=== PATIENT | male | born 2000 ===

== ENCOUNTER 2021-08-01 13:47 | Inpatient (IN) | payer MEDICAID, OTHER ==
[2021-08-01 13:58] VITALS: RESP 18
--- NOTE | 2021-08-01 15:53 | ED ---
General Adult HPI - General Chief complaint: Psychiatric Symptoms Stated complaint: Mental Health Time Seen by Provider: 08/01/21 14:59 Source: patient Mode of arrival: ambulatory Limitations: no limitations - History of Present Illness Initial comments: Dictation was produced using [employer] dictation software. please excuse any grammatical, word or spelling errors. Chief Complaint: Patient is a 21-year-old male presents emergency department for suicidal intent History of Present Illness: Is a 21-year-old male he lives with his gra ndparents. He states he feels depressed and wants to harm himself. He states he has a plan of cutting himself or crashing her car intentionally. Patient denies any such attempt recently. Patient has any psychiatric history. States that he feels this way because he feels pressure to grow up. Hasn't homicidal ideation. No visual auditory hallucinations. The ROS documented in this emergency department record has been reviewed and confirmed by me. Those systems with pertinent positive or negative responses have been documented in the HPI. All other systems are other negative and/or noncontributory. PHYSICAL EXAM: General Impression: Alert and oriented x3, not in acute distress HEENT: Normocephalic atraumatic, extra-ocular movements intact, pupils equal and reactive to light bilaterally, mucous membranes moist. Cardiovascular: Heart regular rate and rhythm Chest: Able to complete full sentences, no retractions, no tachypnea Abdomen: abdomen soft, non-tender, non-distended, no organomegaly Musculoskeletal: Pulses present and equal in all extremities, no peripheral edema Motor: no focal deficits noted Neurological: CN II-XII grossly intact, no focal motor or sensory deficits noted Skin: Intact with no visualized rashes Psych: Normal affect and mood ED course: 21-year-old male presents to the emergency department for suicidal ideation and intent. Signs upon arrival are within acceptable limits. Patient has no medical complaints. Patient medically cleared for EPS evaluation. - Related Data Allergies Allergy/AdvReac Type Severity Reaction Status Date / Time haloperidol [From Haldol] Allergy Unknown Verified 08/01/21 13:59 Review of Systems ROS Statement: Those systems with pertinent positive or pertinent negative responses have been documented in the HPI. ROS Other: All systems not noted in ROS Statement are negative. Past Medical History Past Medical History: No Reported History History of Any Multi-Drug Resistant Organisms: None Reported Past Surgical History: Appendectomy Past Psychological History: No Psychological Hx Reported Smoking Status: Former smoker Past Alcohol Use History: None Reported Past Drug Use History: Marijuana General Exam Limitations: no limitations Course Vital Signs 08/01/21 13:53 Temperature 98.0 F Pulse Rate 65 Respiratory 18 Rate Blood Pressure 159/82 O2 Sat by Pulse 100 Oximetry Disposition Referrals: None,Stated [Primary Care Provider] - 1-2 days
[2021-08-02] MEDS ORDERED: MAG HYDROX/AL HYDROX/SIMETH 30 ML CUP PO PRN (00:58)
[2021-08-02] MEDS ORDERED: HALOPERIDOL LACTATE 5 MG/ML 1 ML VIAL IM PRN (00:58)
[2021-08-02] MEDS ORDERED: LORazepam 1 MG TAB PO PRN (00:58)
[2021-08-02] MEDS ORDERED: ACETAMINOPHEN TAB 325 MG TAB PO PRN (00:58)
[2021-08-02] MEDS ORDERED: MAGNESIUM HYDROXIDE 2,400 MG/10 ML CUP PO PRN (00:58)
[2021-08-02] MEDS: NICOTINE 14MG/24HR PATCH TRANSDERM SCH (08:23)
[2021-08-02 09:31] LABS: Urine Alcohol Negative (Negative); Urine Barbiturate Negative (Negative); Urine Cocaine Negative (Negative); Urine Methadone Negative (Negative); Urine Opiates Negative (Negative); Urine Phencyclidine Negative (Negative)
[2021-08-02] MEDS ORDERED: LORazepam 2 MG/ML INJ IM PRN (09:39)
[2021-08-02] MEDS ORDERED: flUPHENAZine 2.5 MG/ML (MDV) 10 ML VIAL IM PRN (10:06)
--- NOTE | 2021-08-02 13:17 | P.HP ---
Psychiatric H&P - . History & Physical: Allergies Allergy/AdvReac Type Severity Reaction Status Date / Time No Known Allergies Allergy Verified 08/02/21 11:11 Vital Signs Temp 97.8 F 08/02/21 03:07 Pulse 72 08/02/21 03:07 Resp 18 08/02/21 03:07 BP 133/70 08/02/21 03:07 Pulse Ox 98 08/02/21 03:07 Intake & Output 08/01/21 08/02/21 08/02/21 18:59 06:59 18:59 Weight 113.398 kg 109.9 kg Laboratory Last Values Urine Opiates Screen Negative (Negative) 08/01/21 17:46 Urine Methadone Screen Negative (Negative) 08/01/21 17:46 Ur Propoxyphene Screen Negative (Negative) 08/01/21 17:46 Urine Barbiturates Negative (Negative) 08/01/21 17:46 Ur Phencyclidine Scrn Negative (Negative) 08/01/21 17:46 Ur Amphetamine Screen Negative (Negative) 08/01/21 17:46 U Benzodiazepines Scrn Negative (Negative) 08/01/21 17:46 Urine Cocaine Screen Negative (Negative) 08/01/21 17:46 U Cannabinoids Screen Positive (Negative) A 08/01/21 17:46 Urine Alcohol Negative (Negative) 08/01/21 17:46 Coronavirus (PCR) Not Detected (Not Detectd) 08/02/21 01:05 08/02/21 13:11 IDENTIFYING DATA: Patient is a 21-year-old male with no psychiatric history who presents for suicidal ideations with intent and plan. HPI: States that he has had intermittent suicidal thoughts for most days over the past few years. Currently he reports suicidal thoughts with intent and plan to lay down on the train tracks or use knives to kill himself. States that a few weeks ago, he tried hanging himself. He put a rope around his neck and stood up on stool. However he could not get off the stool because he thought that it would be painful. States that at times he feels like it is too hard to kill himself and therefore killing himself is not worth it. States that he has a lot of responsibilities and he just believes that it is easier to kill himself. States that his grandparents are source of support. Other than kitchen knives at home, he denies any other access to guns or weapons. States that in the past he used marijuana daily but denies any recent use. No other substance use. Denies homicidal thoughts. He states that over the past few years he has had periods lasting for weeks with lack of motivation, anhedonia, depression, feelings of guilt, low energy. Denies any symptoms of jose angel or hallucinations. PAST PSYCHIATRIC HISTORY: Denies PMH: Appendectomy in the past ALLERGIES: as per EMR CHEMICAL DEPENDENCY HISTORY: as per HPI FAMILY PSYCHIATRIC/SUBSTANCE USE HISTORY: Schizophrenia in mother, psychosis in brother, drug use in brother, alcohol use in mom SOCIAL HISTORY: Lives with grandparents, denies legal issues, denies source of income MENTAL STATUS EXAM: General Appearance: 21-year-old overweight male with brown hair and marcelo and glasses. Dressed casually. In no acute distress. Behavior: Patient is seated without any agitated behavior. [] Speech: Patient's speech is [fluent and nonpressured.] He is monotone Mood/Affect: Patient reports their mood is "bored", affect is congruent and constricted. He is tearful Suicidality/Homicidality: Patient denies having any homicidal ideation intent o r plan. Currently has suicidal ideations with intent and plan Perceptions: Patient denies any visual hallucinations [and denies any auditory hallucinations] Though content/process: [There is no evidence of any delusional thought content and thought process is linear and goal-directed.] Memory and concentration: AOX3, grossly intact for the purposes of this session. Judgment and insight: [poor] STRENGTHS/WEAKNESSES: strength is that patient has a good support system. Weakness is that patient has a family history that is significant for schizophrenia and psychosis, and he has severe depression currently INTELLECT: [average] IMPRESSIONS: major depressive disorder PLAN: -Patient is admitted under [voluntary] status to [facility] for stabilization of psychiatric symptoms and safety. -Medications : Will start patient on Prozac 20 mg daily -Ativan [and Prolixin PRN for agitation/aggression -Patient was informed of the risks, benefits and side effects of the medication and patient verbally consented to taking the medications. Patient signed med consent form and was placed in chart. -SW on board for discharge planning. Encourage patient to participate in groups to work on coping skills.] []
[2021-08-02] MEDS: FLUoxetine HCL 20 MG CAP PO SCH (13:45)
--- NOTE | 2021-08-03 02:50 | P.MDCNMH ---
History of Present Illness H&P Date: 08/02/21 Chief Complaint: Suicidal ideation 21-year-old male with no significant past medical history Comes into the hospital for evaluation due to depressed mood and suicidal ideation currently denies any medical concerns denies any chest pain trouble breathing fevers chills coughing denies any nausea vomiting or abdominal pain denies any changes in urinary or bowel habits Review of Systems Pertinent positives as noted in HPI. All other systems were reviewed and are negative Past Medical History Past Medical History: No Reported History History of Any Multi-Drug Resistant Organisms: None Reported Past Surgical History: Appendectomy Smoking Status: Never smoker - Past Family History Family Family Medical History: No Reported History Medications and Allergies Home Medications Medication Instructions Recorded Confirmed Type No Known Home Medications 08/01/21 08/01/21 History Allergies Allergy/AdvReac Type Severity Reaction Status Date / Time No Known Allergies Allergy Verified 08/02/21 11:11 Physical Exam Vitals: Vital Signs Temp Pulse Resp BP Pulse Ox 08/02/21 03:07 97.8 F 72 18 133/70 98 Constitutional: No acute distress, conversant, pleasant Eyes: Anicteric sclerae, moist conjunctiva, Pupils equal round reactive to light ENMT: NC/AT Oropharynx clear, no erythema, or exudates Neck: Supple, FROM, no masses, or JVD No carotid bruits No thyromegaly Lungs: Clear to auscultation Clear to percussion Normal respiratory effort, no accessory muscle use Cardiovascular: Heart regular in rate and rhythm, No murmurs, gallops, or rubs No peripheral edema Abdominal: Soft Nontender, no guarding, rebound or rigidity Abdomen moving with respiration Normoactive bowel sounds No hepatomegaly, No splenomegaly No palpable mass No abdominal wall hernia noted Skin: Normal temperature, tone, texture, turgor No induration No subcutaneous nodules No rash, lesions No ulcers Extremities: No digital cyanosis No clubbing Pedal pulses intact and symmetrical Radial pulses intact and symmetrical No calf tenderness Psychiatric: Alert and oriented to person, place and time fair judgement Neuro Muscles Strength 5/5 in all 4 extremities Sensation to light touch grossly present throughout Cranial nerves II-XII grossly intact No focal sensory deficits Lymphatics: no palpable cervical or supraclavicular , or inguinal lymph nodes Cranial Nerve Examination - Cranial Nerves Cranial Nerve II- Optic: Intact Cranial Nerve III- Oculomotor: Intact Cranial Nerve IV- Trochlear: Intact Cranial Nerve V- Trigeminal: Intact Cranial Nerve - Abducens: Intact Cranial Nerve VII- Facial: Intact Cranial Nerve VIII- Auditory: Intact Cranial Nerve IX- Glossopharyngeal: Intact Cranial Nerve X- Vagus: Intact Cranial Nerve XI- Accessory: Intact Cranial Nerve XII- Hypoglossal: Intact Results Labs: Abnormal Lab Results - Last 24 Hours (Table) 08/01/21 Range/Units 17:46 U Cannabinoids Screen Positive A (Negative) Assessment and Plan Assessment: Depressions suicidal ideation Management psych Cannabinoid dependence Follow-up labs Thank you for allowing us to participate in the care of this patient. We will follow peripherally. Do not hesitate to contact us with questions. Someone can be reached from the [facility] hospitalist group at all hours of the day at [phone].
[2021-08-03 07:57] LABS: Basophils # (A) 0.1 k/uL (0-0.2); Basophils % (A) 1 %; Eosinophils # (A) 0.1 k/uL (0-0.7); Eosinophils % (A) 1 %; HCT 48.4 % (39.0-53.0); HGB 15.6 gm/dL (13.0-17.5); Lymphocytes # (A) 3.5 k/uL (1.0-4.8); Lymphocytes % (A) 36 %; MCH 28.8 pg (25.0-35.0); MCHC 32.3 g/dL (31.0-37.0); MCV 89.1 fL (80.0-100.0); Mean Platelet Volume 7.9; Monocytes # (A) 0.5 k/uL (0-1.0); Monocytes % (A) 5 %; Neutrophils # (A) 5.3 k/uL (1.3-7.7); Neutrophils % (A) 55 %; Platelet Count 349 k/uL (150-450); RBC 5.43 m/uL (4.30-5.90); RDW 13.4 % (11.5-15.5); WBC 9.6 k/uL (4.0-11.0)
[2021-08-03] MEDS: NICOTINE 14MG/24HR PATCH TRANSDERM SCH (07:59)
[2021-08-03] MEDS: FLUoxetine HCL 20 MG CAP PO SCH (08:00)
[2021-08-03 08:12] LABS: ALT 24 U/L (4-49); AST 22 U/L (17-59); African American GFR (CKD) >90 (>60 ml/min/1.73 sqM); Alkaline Phosphatase 92 U/L (38-126); Anion Gap 15 mmol/L; Blood Urea Nitrogen 9 mg/dL (9-20); Calcium 10.1 mg/dL (8.4-10.2); Carbon Dioxide 23 mmol/L (22-30); Chloride 103 mmol/L (98-107); Glucose 103 mg/dL (74-99); Non-African American GFR(CKD) >90 (>60 ml/min/1.73 sqM); Potassium 4.2 mmol/L (3.5-5.1); Sodium 141 mmol/L (137-145); Total Bilirubin 1.2 mg/dL (0.2-1.3); Total Protein 8.3 g/dL (6.3-8.2)
[2021-08-03 14:10] LABS: Estimated Average Glucose UNC
[2021-08-03 14:26] LABS: Chol/HDL Ratio 5.25 Ratio; LDL Cholesterol,Calculated 104.9 mg/dL (0.0-131.0)
--- NOTE | 2021-08-03 14:28 | P.PN ---
Progress Note - Text Interval history: Patient was seen in the office and was directable and agreeable to speak with comic writer. Reports that his motivation has improved. States that the suicidal thoughts are less frequent and he has not come up with a plan today. His last suicidal ideations were earlier this morning and he had no plan during that ti me.. At this time patient denies any suicidal or homicidal ideations intent or plan. Denies any Auditory or visual hallucinations. Reports mild abdominal cramping because of the Prozac Mental status exam: General Appearance: [alert, directable, and cooperative.] Behavior: [No agitated behavior. Patient is calm and directable] Speech: Patient's speech is fluent and nonpressured. Mood/Affect: Mood is improving, affect is congruent and constricted. Suicidality/Homicidality: Patient denies having any suicidal or homicidal ideation intent or plan. Perceptions: Patient denies any auditory or visual hallucinations. Though content/process: [There is no evidence of any delusional thought content and thought process is linear and goal-directed.] Memory and concentration: AOX3, grossly intact for the purposes of this session Judgment and insight: improving mildly Assessment/Plan: Continue with current diagnosis. Patient continues to meet criteria for inpatient psychiatric admission for symptom stabilization and safety.[Patient will be maintained on current psychotropic medication regimen.] Monitor for medication compliance and for any psychotropic medication side effects. Will continue to monitor ongoing response to treatment. Encouraged participation in milieu.
[2021-08-04] MEDS: FLUoxetine HCL 20 MG CAP PO SCH (08:27)
[2021-08-04] MEDS ORDERED: FLUoxetine HCL 20 MG CAP PO STA (10:21)
--- NOTE | 2021-08-04 10:27 | P.PN ---
Progress Note - Text Progress Note Date: 08/04/21 Interval History: Patient was seen sitting in on group this morning and was directable and agree able to speak with parts data writer in the office. Patient claims that he was feeling very depressed before coming into the hospital. He states that he is not able to get out of bed and was feeling anxious as well. He states that this has been going on for several weeks now. He claims that he lives with his grandmother. He went through the suicidal thoughts that he was having prior to coming in the hospital and had several different plans. He states that today he is feeling a lot better in terms of his depression and anxiety. He states that he is not having suicidal thoughts today. He claims that he is looking forward to getting back to work once he is discharged as he was trying to apply to different places prior to being admitted. He states that he is able to sleep fairly throughout the night. Denies any changes in his appetite. At this time patient denies any current suicidal or homical ideations, intent or plan. Patient denies any auditory, visual hallucinations and denies any paranoia or delusions. Patient denies any side effects from the medications and has been compliant with meds. Mental Status Exam: General Appearance: Patient appears to be overweight, wearing glasses, stated age is alert, directable, and cooperative. Behavior: Patient is calmly seated without any agitated behavior. Speech: Patient's speech is fluent and nonpressured. Mood/Affect: Mood is improving mildly, affect is congruent and constricted. Suicidality/Homicidality: Patient denies having any suicidal or homicidal ideation intent or plan. Perceptions: Patient denies any visual hallucinations and denies any auditory hallucinations Though content/process: There is no evidence of any delusional thought content and thought process is linear and goal-directed. Memory and concentration: AOX3, grossly intact for the purposes of this session Judgment and insight: Improving mildly Assessment Major depressive disorder, severe, recurrent without psychotic features Plan: -Patient continues to meet criteria for inpatient psychiatric admission for symptom stabilization and safety. Patient has signed adult voluntary form and medication consent and was placed in patient's chart. -Medications: Increased Prozac to 40 mg daily for mood/anxiety. -When necessary Ativan and Haldol for agitation/aggression. -NRT - not needed as patient does not smoke. -SW on board for discharge planning. Encouraged the patient to participate in milieu. food and drink factory workers to follow up with patient's grandmother and family today to plan for likely discharge tomorrow. Ensure that there are no guns and weapons in the house.
[2021-08-05 07:12] VITALS: BP 131/63; PULSE 78; TEMP 98.2
[2021-08-05] MEDS ORDERED: FLUoxetine HCL 20 MG CAP PO SCH (09:00)
--- NOTE | 2021-08-05 09:22 | P.DS ---
Providers Date of admission: 08/02/21 01:55 Expected date of discharge: 08/05/21 Attending physician: Keshawn Vásquez MD Consults: 08/02/21 00:58 Consult Physician Routine Consulting Provider: Laure Bradford Consult Reason/Comments: h and p Do you want consulting provider notified?: Already Contacted Primary care physician: Stated None - Discharge Diagnosis(es) (1) Major depressive disorder, recurrent severe without psychotic features Current Visit: Yes Status: Acute Priority: High Hospital Course: Admission HPI: Admission note was completed by Dr Alvarado "Patient is a 21-year-old male with no psychiatric history who presents for suicidal ideations with intent and plan. States that he has had intermittent suicidal thoughts for most days over the past few years. Currently he reports suicidal thoughts with intent and plan to lay down on the train tracks or use knives to kill himself. States that a few weeks ago, he tried hanging himself. He put a rope around his neck and stood up on stool. However he could not get off the stool because he thought that it would be painful. States that at times he feels like it is too hard to kill himself and therefore killing himself is not worth it. States that he has a lot of responsibilities and he just believes that it is easier to kill himself. States that his grandparents are source of support. Other than kitchen knives at home, he denies any other access to guns or weapons. States that in the past he used marijuana daily but denies any recent use. No other substance use. Denies homicidal thoughts. He states that over the past few years he has had periods lasting for weeks with lack of motivation, anhedonia, depression, feelings of guilt, low energy. Denies any symptoms of jose angel or hallucinations." Hospital course: Upon admission to the unit patient was directable and agreeable to commence treatment and signed adult voluntary form. Patient got along well with other patients on the unit and followed unit protocol. Patient was compliant with the medications and denied any side effects throughout hospital course. Patient was started on Prozac and increased to a dose of 40 mg daily for mood/anxiety. Patient spoke of his stressors and engaged in therapy both group and individual. Patient was also seen by medical team for history and physical exam. Throughout the course of the hospitalization patient gradually improved with regards to mood, anxiety, sleep and became more future oriented with improved insight and judgment. On the day of discharge patient denied any suicidal or homicidal ideations intent or plan denied any auditory or visual hallucinations. Patient endorsed wanting to live for his health and family. The patient denied any access to guns or weapons. Patient denied any paranoia and did not endorse any delusions. Patient does have a significant history of substance abuse and was counseled on abstaining from all substances including alcohol and marijuana. Patient elected to do outpatient substance use treatment program through [facility]. Patient was also counseled on the medications and need for regular compliance and was encouraged to follow-up with their outpatient appointment for mental health and also for primary care. Prior to discharge a family meeting will be arranged by social media executive to answer any questions and ensure safety upon discharge. Mental status exam: General Appearance: Patient appears to be overweight, wearing glasses, stated age is alert, pleasant, and cooperative. Patient is in no acute distress and has improved hygiene and grooming Behavior: Patient is calmly seated without any agitated behavior. Speech: Patient's speech is fluent and nonpressured. Mood/Affect: Patient reports their mood is "better", affect is congruent and euthymic. Suicidality/Homicidality: Patient denies having any suicidal or homicidal ideation intent or plan. Perceptions: Patient denies any auditory or visual hallucinations. Though content/process: There is no evidence of any delusional thought content and thought process is linear and goal-directed. more future oriented Memory and concentration: AOX3, grossly intact for the purposes of this session. Can spell "WORLD" backwards correctly. Judgment and insight: improved with guarded prognosis Impression: Major depressive disorder, severe, recurrent without psychotic features Cannabis use disorder mild Plan: -Continue with discharge today as patient has improved and stabilized psychiatrically and is not currently an imminent threat to himself and/or others. -Continue medications: Prozac 40 mg daily for mood/anxiety. -Patient was counseled on the need for medication compliance and appropriate follow-up at mental health and also primary care for medical issues. Patient verbalized understanding and agreed. -Social work to arrange for and conduct family meeting to ensure safety upon discharge and answer any questions/concerns. Social work also to arrange for patients follow up appointments for psychiatric care along with follow up with primary care provider. -Patient counseled on abstaining from recreational drugs and marijuana and alcohol. Was informed/educated on the adverse effects on their physical and mental health. Patient verbally agreed and understood. -Patient was instructed to return to the hospital or seek immediate medical care if their psychiatric or medical symptoms do worsen or reoccur. Allergies Allergy/AdvReac Type Severity Reaction Status Date / Time No Known Allergies Allergy Verified 08/02/21 11:11 Laboratory Results WBC 9.6 k/uL (4.0-11.0) 08/03/21 07:07 RBC 5.43 m/uL (4.30-5.90) 08/03/21 07:07 Hgb 15.6 gm/dL (13.0-17.5) 08/03/21 07:07 Hct 48.4 % (39.0-53.0) 08/03/21 07:07 MCV 89.1 fL (80.0-100.0) 08/03/21 07:07 MCH 28.8 pg (25.0-35.0) 08/03/21 07:07 MCHC 32.3 g/dL (31.0-37.0) 08/03/21 07:07 RDW 13.4 % (11.5-15.5) 08/03/21 07:07 Plt Count 349 k/uL (150-450) 08/03/21 07:07 MPV 7.9 08/03/21 07:07 Neutrophils % 55 % 08/03/21 07:07 Lymphocytes % 36 % 08/03/21 07:07 Monocytes % 5 % 08/03/21 07:07 Eosinophils % 1 % 08/03/21 07:07 Basophils % 1 % 08/03/21 07:07 Neutrophils # 5.3 k/uL (1.3-7.7) 08/03/21 07:07 Lymphocytes # 3.5 k/uL (1.0-4.8) 08/03/21 07:07 Monocytes # 0.5 k/uL (0-1.0) 08/03/21 07:07 Eosinophils # 0.1 k/uL (0-0.7) 08/03/21 07:07 Basophils # 0.1 k/uL (0-0.2) 08/03/21 07:07 Sodium 141 mmol/L (137-145) 08/03/21 07:07 Potassium 4.2 mmol/L (3.5-5.1) 08/03/21 07:07 Chloride 103 mmol/L (98-107) 08/03/21 07:07 Carbon Dioxide 23 mmol/L (22-30) 08/03/21 07:07 Anion Gap 15 mmol/L 08/03/21 07:07 BUN 9 mg/dL (9-20) 08/03/21 07:07 Creatinine 0.81 mg/dL (0.66-1.25) 08/03/21 07:07 Est GFR (CKD-EPI)AfAm >90 (>60 ml/min/1.73 sqM) 08/03/21 07:07 Est GFR (CKD-EPI)NonAf >90 (>60 ml/min/1.73 sqM) 08/03/21 07:07 Glucose 103 mg/dL (74-99) H 08/03/21 07:[address] Glu mg/dL [facility] 08/03/21 07:07 Hemoglobin A1c CANCELED % 08/03/21 07:07 Calcium 10.1 mg/dL (8.4-10.2) 08/03/21 07:07 Total Bilirubin 1.2 mg/dL (0.2-1.3) 08/03/21 07:07 AST 22 U/L (17-59) 08/03/21 07:07 ALT 24 U/L (4-49) 08/03/21 07:07 Alkaline Phosphatase 92 U/L (38-126) 08/03/21 07:07 Total Protein 8.3 g/dL (6.3-8.2) H 08/03/21 07:07 Albumin 5.0 g/dL (3.5-5.0) 08/03/21 07:07 Triglycerides 103.00 mg/dL (0.00-149.00) 08/03/21 07:07 Cholesterol 155.00 mg/dL (0.00-200.00) 08/03/21 07:07 LDL Cholesterol, Calc 104.9 mg/dL (0.0-131.0) 08/03/21 07:07 VLDL Cholesterol, Calc 20.60 mg/dL (5.00-40.00) 08/03/21 07:07 HDL Cholesterol 29.50 mg/dL (40.00-60.00) L 08/03/21 07:07 Cholesterol/HDL Ratio 5.25 Ratio 08/03/21 07:07 TSH 1.560 mIU/L (0.465-4.680) 08/03/21 07:07 Urine Opiates Screen Negative (Negative) 08/01/21 17:46 Urine Methadone Screen Negative (Negative) 08/01/21 17:46 Ur Propoxyphene Screen Negative (Negative) 08/01/21 17:46 Urine Barbiturates Negative (Negative) 08/01/21 17:46 Ur Phencyclidine Scrn Negative (Negative) 08/01/21 17:46 Ur Amphetamine Screen Negative (Negative) 08/01/21 17:46 U Benzodiazepines Scrn Negative (Negative) 08/01/21 17:46 Urine Cocaine Screen Negative (Negative) 08/01/21 17:46 U Cannabinoids Screen Positive (Negative) A 08/01/21 17:46 Urine Alcohol Negative (Negative) 08/01/21 17:46 Coronavirus (PCR) Not Detected (Not Detectd) 08/02/21 01:05 Vital Signs Temp 98.2 F 08/05/21 07:12 Pulse 78 08/05/21 07:12 Resp 18 08/04/21 06:43 BP 131/63 08/05/21 07:12 Pulse Ox 99 08/05/21 07:12 Patient Condition at Discharge: Stable Plan - Discharge Summary Discharge Rx Participant: No New Discharge Prescriptions: New FLUoxetine HCL [PROzac] 40 mg PO DAILY 30 Days cap Discharge Medication List FLUoxetine HCL [PROzac] 40 mg PO DAILY 30 Days cap 08/05/21 [Rx] Follow up Appointment(s)/Referral(s): [facility] [Outside] - 08/05/21 1:00 pm (with Rafa) None,Stated [Primary Care Provider] - 1-2 days Activity/Diet/Wound Care/Special Instructions: Activity and diet as tolerated. Avoid the use of street drugs and alcohol. Take all medications as prescribed. When you are in need of refills on your medications please contact your medical provider and/or outpatient psychiatrist to have this done. Please go to scheduled outpatient appointment for aftercare treatment. If symptoms return or become worse, call the crisis line at and/or go to the nearest emergency room for evaluation Discharge Disposition: HOME SELF-CARE
== END 2021-08-05 11:55 | disposition home or self-care (01) | DRG 885 ==
LOC: EC 13:47 → 3MHU 08-02 01:55
PROVIDERS: ADMIT Psychiatry & Neurology Psychiatry; ATTEND Psychiatry & Neurology Psychiatry
DX: F33.2 Major depressive disorder, recurrent severe without psychotic features (principal); R45.851 Suicidal ideations; F12.10 Cannabis abuse, uncomplicated; F41.9 Anxiety disorder, unspecified; Z20.822 Contact with and (suspected) exposure to COVID-19; Z79.899 Other long term (current) drug therapy; Z81.8 Family history of other mental and behavioral disorders; Z87.891 Personal history of nicotine dependence; Z71.89 Other specified counseling; Z90.49 Acquired absence of other specified parts of digestive tract; Z98.890 Other specified postprocedural states
CPT/HCPCS: 80053; 80061; 80306; 82075; 83036; 84443; 85025; 87635; 99285

== ENCOUNTER 2023-09-20 10:47 | Inpatient (IN) | payer MEDICAID, OTHER ==
[2023-09-20 11:56] LABS: Amphetamine Screen,Urine Not Detected (NotDetected); Barbiturate Screen,Urine Not Detected (NotDetected); Benzodiazepines Screen,Urine Not Detected (NotDetected); Cocaine Screen,Urine Not Detected (NotDetected); Methadone Screen, Urine Not Detected (NotDetected); Opiate Screen,Urine Not Detected (NotDetected); Oxycodone Screen, Urine Not Detected (NotDetected); Phencyclidine Screen,Urine Not Detected (NotDetected); Tricyclic Antidepressant,Urine Not Detected (NotDetected); Urn Cannabinoid Scrn Detected (NotDetected)
--- NOTE | 2023-09-20 11:57 | ED ---
Psych HPI - General Chief Complaint: Psychiatric Symptoms Stated Complaint: Mental Health eval. Time Seen by Provider: 09/20/23 10:55 Source: patient, EMS, RN notes reviewed Mode of arrival: EMS Limitations: no limitations - History of Present Illness Initial Comments: 23-year-old male presents emergency department with chief complaint of depression, 6 ideation he was at [facility] being evaluated when he expresses ideation. Patient states he tried to harm self in the past he does have a history of depression and admitted to [facility] in the past he states that he had an argument and states that because of this he has spiraled downhill. He does admit to prior marijuana use denies any alcohol abuse no other illicit drug use. - Related Data Previous Rx's Medication Instructions Recorded FLUoxetine HCL [PROzac] 40 mg PO DAILY 30 Days cap 08/05/21 Allergies Allergy/AdvReac Type Severity Reaction Status Date / Time No Known Allergies Allergy Verified 09/20/23 10:52 Review of Systems ROS Statement: Those systems with pertinent positive or pertinent negative responses have been documented in the HPI. ROS Other: All systems not noted in ROS Statement are negative. Past Medical History Past Medical History: No Reported History History of Any Multi-Drug Resistant Organisms: None Reported Past Surgical History: Appendectomy Past Psychological History: No Psychological Hx Reported Smoking Status: Former smoker Past Alcohol Use History: None Reported Past Drug Use History: Marijuana - Past Family History Family Family Medical History: No Reported History General Exam Limitations: no limitations General appearance: alert, in no apparent distress Head exam: Present: atraumatic, normocephalic, normal inspection Eye exam: Present: normal appearance, PERRL, EOMI. Absent: scleral icterus, conjunctival injection, periorbital swelling ENT exam: Present: normal exam, normal oropharynx, mucous membranes moist Neck exam: Present: normal inspection, full ROM. Absent: tenderness, me ningismus, lymphadenopathy Respiratory exam: Present: normal lung sounds bilaterally. Absent: respiratory distress, wheezes, rales, rhonchi, stridor Cardiovascular Exam: Present: regular rate, normal rhythm, normal heart sounds. Absent: systolic murmur, diastolic murmur, rubs, gallop, clicks GI/Abdominal exam: Present: soft, normal bowel sounds. Absent: distended, tenderness, guarding, rebound, rigid Neurological exam: Present: alert Psychiatric exam: Present: depressed Course Vital Signs 09/20/23 10:48 Temperature 98.8 F Pulse Rate 72 Respiratory 18 Rate Blood Pressure 154/89 O2 Sat by Pulse 100 Oximetry Medical Decision Making - Medical Decision Making Was pt. sent in by a medical professional or institution (, JL, INVENTORY ASSOCIATE AND DRIVER, urgent care, hospital, or alf...) When possible be specific @ -[facility] Did you speak to anyone other than the patient for history (EMS, parent, family, police, friend...)? What history was obtained from this source @ -No Did you review nursing and triage notes (agree or disagree)? Why? @ -I reviewed and agree with nursing and triage notes Were old charts reviewed (outside hosp., previous admission, EMS record, old EKG, old radiological studies, urgent care reports/EKG's, alf records)? Report findings @ -No old charts were reviewed Differential Diagnosis (chest pain, altered mental status, abdominal pain women, abdominal pain men, vaginal bleeding, weakness, fever, dyspnea, syncope, headache, dizziness, GI bleed, back pain, seizure, CVA, palpatations, mental health, musculoskeletal)? @ -Differential Mental Health Depression, anxiety, bipolar, psychosis, schizophrenia, borderline personality, situational depression, adjustment disorder, behavioral disorder, brain tumor, malingering, substance abuse, encephalopathy, medication reaction, dementia, hypothyroidism, degenerative neurologic disorder, lupus.... This is not meant to be all-inclusive list EKG interpreted by me (3pts min.). @ -None X-rays interpretenone d by me (1pt min.). @ -None done CT interpreted by me (1pt min.). @ -None done U/S interpreted by me (1pt. min.). @ -None done What testing was considered but not performed or refused? (CT, X-rays, U/S, labs)? Why? @ -None What meds were considered but not given or refused? Why? @ -None Did you discuss the management of the patient with other professionals (professionals i.e. JL Delacruz, INVENTORY ASSOCIATE AND DRIVER, lab, RT, psych nurse, social work manager, u.[place]. senator, teacher, motorcycle police officer, home health care case manager)? Give summary @EPS evaluated the patient discussed with psychiatry recommends inpatient treatment Was smoking cessation discussed for >3mins.? @ -No Was critical care preformed (if so, how long)? @ -No Were there social determinants of health that impacted care today? How? (Homelessness, low income, unemployed, alcoholism, drug addiction, transportation, low edu. Level, literacy, decrease access to med. care, assisted, rehab)? @ -No Was there de-escalation of care discussed even if they declined (Discuss DNR or withdrawal of care, Hospice)? DNR status @ -No What co-morbidities impacted this encounter? (DM, HTN, Smoking, COPD, CAD, Cancer, CVA, ARF, Chemo, Hep., AIDS, mental health diagnosis, sleep apnea, morbid obesity)? @ -None Was patient admitted / discharged? Hospital course, mention meds given and route, prescriptions, significant lab abnormalities, going to OR and other pertinent info. @ -Patient is admitted to [facility] Undiagnosed new problem with uncertain prognosis? @ -No Drug Therapy requiring intensive monitoring for toxicity (Heparin, Nitro, Insulin, Cardizem)? @ -No Were any procedures done? @ -No Diagnosis/symptom? @ -Depression Acute, or Chronic, or Acute on Chronic? @ -Acute Uncomplicated (without systemic symptoms) or Complicated (systemic symptoms)? @ -Complicated Side effects of treatment? @ -No Exacerbation, Progression, or Severe Exacerbation? @ -No Poses a threat to life or bodily function? How? (Chest pain, [place], PR, pneumonia, PE, COPD, DKA, ARF, appy, cholecystitis, CVA, Diverticulitis, Homicidal, Suicidal, threat to staff... and all critical care pts) @ -Yes patient is suicidal - Lab Data Lab Results 09/20/23 Range/Units 11:33 Urine Opiates Screen Not Detected (NotDetected) Ur Oxycodone Screen Not Detected (NotDetected) Urine Methadone Screen Not Detected (NotDetected) Ur Barbiturates Screen Not Detected (NotDetected) U Tricyclic Antidepress Not Detected (NotDetected) Ur Phencyclidine Scrn Not Detected (NotDetected) Ur Amphetamines Screen Not Detected (NotDetected) U Methamphetamines Scrn Not Detected (NotDetected) U Benzodiazepines Scrn Not Detected (NotDetected) Urine Cocaine Screen Not Detected (NotDetected) U Marijuana (THC) Screen Detected H (NotDetected) Disposition Clinical Impression: Suicidal ideation, Depression Disposition: TRANSFER TO PSYCH HOSP/UNIT Referrals: None,Stated [Primary Care Provider] - 1-2 days Time of Disposition: 13:48
[2023-09-20] MEDS ORDERED: ACETAMINOPHEN TAB 325 MG TAB PO PRN (16:12)
[2023-09-20] MEDS ORDERED: HALOPERIDOL LACTATE 5 MG/ML 1 ML VIAL IM PRN (16:12)
[2023-09-20] MEDS ORDERED: IBUPROFEN 600 MG TAB PO PRN (16:12)
[2023-09-20] MEDS ORDERED: MAG HYDROX/AL HYDROX/SIMETH 355 ML BOTTLE PO PRN (16:12)
[2023-09-20] MEDS ORDERED: MAGNESIUM HYDROXIDE 2,400 MG/30 ML CUP PO PRN (16:12)
[2023-09-20] MEDS ORDERED: LORazepam 2 MG/ML INJ IM PRN (16:15)
[2023-09-20 18:19] LABS: Appearance,Urine Clear (Clear); Bilirubin,Urine Negative (Negative); Blood,Urine Negative (Negative); Color,Urine Yellow; Glucose,Urine (UA) Negative (Negative); Ketones,Urine 1+ (Negative); Leukocyte Esterase,Urine Negative (Negative); Nitrite,Urine Negative (Negative); Protein,Urine Trace (Negative); Urobilinogen,Urine <2.0 mg/dL (<2.0)
[2023-09-20] MEDS: NICOTINE 14MG/24HR PATCH TRANSDERM SCH (18:53)
--- NOTE | 2023-09-20 23:28 | P.CONS ---
History of Present Illness - Reason for Consult Consult date: 09/20/23 - History of Present Illness The patient is a 23-year-old male with a PMH of marijuana abuse who had presented to the emergency room with complaints of depression and suicidal ideation. Patient was admitted to the mental health unit where he was seen and evaluated. The patient denied any active complaints at the time of interview. He reports recreational marijuana and alcohol use. Reports drinking 1-2 drinks a week socially. Denied any physical complaints. Denied experiencing chest discomfort, shortness of breath, fever, chills, cough, nausea, vomiting, abdominal pain, diarrhea. Review of systems: Pertinent positives and negatives as discussed in HPI, a complete review of systems was performed and all other systems are negative. Physical examination: General: non toxic, no distress, appears at stated age, obese Derm: no unusual rashes/lesions, no unusual ecchymoses, warm, dry Head: atraumatic, normocephalic, symmetric Eyes: EOMI, no lid lag, anicteric sclera ENT: Nose and ears atraumatic, no thrush, no pharyngeal erythema Neck: trachea midline, supple Mouth: no lip lesion, mucus membranes moist Cardiovascular: S1S2 reg, grade 3 systolic murmur appreciated, no edema Lungs: CTA bilateral, no rhonchi, no rales , no accessory muscle use Abdominal: soft, nontender to palpation, no guarding Ext: no gross muscle atrophy, no contractures, Neuro: No gross focal neuro deficits noted Psych: Alert, oriented, appropriate affect Assessment: Systolic murmur Marijuana abuse Depression and suicidal ideation Imaging: None performed Data Review: Reviewed with urine toxicology positive for marijuana and UA positive for 1+ ketones and trace protein Plan: Obtain echocardiogram Advised on the importance of cessation from marijuana use Defer management of depression and suicidal ideation to the primary psychiatry service Thank you for allowing us to participate in the care of this patient. We will follow peripherally. Do not hesitate to contact us with questions. Someone can be reached from the [facility] hospitalist group at all hours of the day at [phone]. Past Medical History Past Medical History: No Reported History History of Any Multi-Drug Resistant Organisms: None Reported Past Surgical History: Appendectomy Smoking Status: Former smoker - Past Family History Family Family Medical History: Hyperlipidemia Medications and Allergies Home Medications Medication Instructions Recorded Confirmed Type No Known Home Medications 09/20/23 09/20/23 History Allergies Allergy/AdvReac Type Severity Reaction Status Date / Time No Known Allergies Allergy Verified 09/20/23 15:48 Physical Exam Vitals: Vital Signs Temp Pulse Pulse Resp BP BP Pulse Ox 09/20/23 17:12 98.4 F 82 18 157/72 96 09/20/23 14:54 70 16 136/65 98 09/20/23 10:48 98.8 F 72 18 154/89 100 Intake and Output 09/20/23 09/20/23 09/21/23 14:59 22:59 06:59 Other: Weight 104.78 kg 102.965 kg Results Labs: Abnormal Lab Results - Last 24 Hours (Table) 09/20/23 09/20/23 Range/Units 08:00 11:33 Urine Protein Trace H (Negative) Urine Ketones 1+ H (Negative) U Marijuana (THC) Screen Detected H (NotDetected)
[2023-09-20] MEDS: haloperidoL 5 MG TAB PO PRN (23:59)
[2023-09-20] MEDS: LORazepam 1 MG TAB PO PRN (23:59)
[2023-09-21] MEDS: SERTRALINE 25 MG TAB PO SCH (11:37)
--- NOTE | 2023-09-21 11:47 | P.HP ---
Psychiatric H&P - . H&P Date: 09/21/23 History & Physical: Allergies Allergy/AdvReac Type Severity Reaction Status Date / Time No Known Allergies Allergy Verified 09/20/23 15:48 Vital Signs Temp 97.7 F 09/21/23 06:46 Pulse 84 09/21/23 06:46 Resp 18 09/21/23 06:46 BP 160/77 09/21/23 06:46 Pulse Ox 98 09/21/23 06:46 FiO2 Intake & Output 09/20/23 09/21/23 09/21/23 18:59 06:59 18:59 Weight 102.965 kg Laboratory Last Values Urine Color Yellow 09/20/23 08:00 Urine Appearance Clear (Clear) 09/20/23 08:00 Urine pH 7.0 (5.0-8.0) 09/20/23 08:00 Ur Specific [place] 1.030 (1.001-1.035) 09/20/23 08:00 Urine Protein Trace (Negative) H 09/20/23 08:00 Urine Glucose (UA) Negative (Negative) 09/20/23 08:00 Urine Ketones 1+ (Negative) H 09/20/23 08:00 Urine Blood Negative (Negative) 09/20/23 08:00 Urine Nitrite Negative (Negative) 09/20/23 08:00 Urine Bilirubin Negative (Negative) 09/20/23 08:00 Urine Urobilinogen <2.0 mg/dL (<2.0) 09/20/23 08:00 Ur Leukocyte Esterase Negative (Negative) 09/20/23 08:00 Urine Opiates Screen Not Detected (NotDetected) 09/20/23 11:33 Ur Oxycodone Screen Not Detected (NotDetected) 09/20/23 11:33 Urine Methadone Screen Not Detected (NotDetected) 09/20/23 11:33 Ur Barbiturates Screen Not Detected (NotDetected) 09/20/23 11:33 U Tricyclic Antidepress Not Detected (NotDetected) 09/20/23 11:33 Ur Phencyclidine Scrn Not Detected (NotDetected) 09/20/23 11:33 Ur Amphetamines Screen Not Detected (NotDetected) 09/20/23 11:33 U Methamphetamines Scrn Not Detected (NotDetected) 09/20/23 11:33 U Benzodiazepines Scrn Not Detected (NotDetected) 09/20/23 11:33 Urine Cocaine Screen Not Detected (NotDetected) 09/20/23 11:33 U Marijuana (THC) Screen Detected (NotDetected) H 09/20/23 11:33 SARS-CoV-2 (PCR) Not Detected (Not Detectd) 09/20/23 13:47 09/21/23 08:55 IDENTIFYING DATA: Patient is a 23 year old male, lives with his grandmother in a house. No Children, single, works at a [employer]. HPI: Patient presented to the hospital on 09/19. As per EPS note, "Pt brought in by EMS from [facility] due to suicidal and homicidal thoughts. pt alert and oriented x4. Pt reports that he got into an argument with his grandma on wednesday and it made the whole weekend bad. States he was crying, angry, sad, and anxious. Pt states "I get angry that i cant kill myself and it makes me want to take my frustration out on other people." Pt reports he is currently suicidal but denies a plan. pt reports HI towards no one specific and its only when hes frustrated. Pt denies Auditory or visual hallucinations. no delusions present. pt has a history of a suicide attempt by using a noose. Pt denies any medical conditions, denies any current medications." Upon todays interview, he stated he got into an argument with his grandmother, about his duties around the house. He states he was stressed from work, and this just added to his depression. He states that his father passed a few years ago, and that his mom recently went to detention. He states that his depression is increasingly getting worse, and having passive suicidal thoughts, like he should not have ever been born. Patient admits to manic episodes occasionally, but more depression and anxiety. He states his sleep is usually "off", and his appetite is up and down. Patient denies any suicidal or homicidal ideations intent or plan however he did state that he has passive suicidal thoughts of "not living anymore" however does not have a plan. At this time patient denies any auditory or visual hallucinations. Patient denies any flight of ideas racing thoughts and increased in goal directed behavior. Patient admits to using marijuana, nicotine, and very rarely alcohol. PAST PSYCHIATRIC HISTORY: Patient states that he was last admitted to this unit in July 2021. He is open with [facility] however apparnetly has not seen someone there in 2 years. Patient denies being on any psychiatric medications. Was previously on Prozac, and he attempted to overdose on them. Patient has attempted suicide in the past by means of hanging. PMH:As per ER note ALLERGIES: as per EMR CHEMICAL DEPENDENCY HISTORY: as per HPI FAMILY PSYCHIATRIC/SUBSTANCE USE HISTORY: Schizophrenia in mother, psychosis in brother, drug use in brother, alcohol use in mom SOCIAL HISTORY: Patient was born and raised in [place], [place]. Dropped out of school in 9th grade. Single, no children, lives with grandmother. Denies legal issues MENTAL STATUS EXAM: General Appearance: Patient appears to be stated age is alert, directable, and attempts to cooperate. Patient appears to have adequate hygiene and grooming. Dressed in his own clothes, long hair, braided. Wearing glasses. Has a marcelo. Behavior: Patient is seated without any agitated behavior. Proper eye contact Speech: Patient's speech is fluent and nonpressured. Mood/Affect: Patient reports their mood is depressed, affect is congruent and constricted. Suicidality/Homicidality: Patient denies having any homicidal ideation intent or plan. Denies any suicidal ideations intent or plan Perceptions: Patient denies any visual hallucinations and denies any auditory hallucinations Though content/process: There is no evidence of any delusional thought content and thought process is linear and goal-directed. Memory and concentration: AOX3, grossly intact for the purposes of this session. Can spell "WORLD" backwards Judgment and insight: fair STRENGTHS/WEAKNESSES: strength is that patient is resilient. Weakness is that patient has poor judgment and is impulsive INTELLECT: Average IMPRESSIONS: bipolar disorder, current episode, depressed Nicotine dependance Cannabis use disorder PLAN: -Patient is admitted under voluntary status to MHU for stabilization of psychiatric symptoms and safety. Patient has signed adult voluntary form and medication consent and is placed in patient's chart. -Medications : Will start patient on Zoloft 25mg daily for depression/anxiety, Seroquel 25mg qhs for mood stabilization/sleep plan to increase as tolerated. -Ativan and Haldol PRN for agitation/aggression -Ordered EKG, will defer Echo for outpatient and cardio follow up for potential murmur. -Patient was counselled on substance abuse and desired to cut back on use -Patient was informed of the risks, benefits and side effects of the medication and patient verbally consented to taking the medications. -Internal Medicine consult to perform medical evaluation and physical. -NRT -nicotine patch -SW on board for discharge planning. Encourage patient to participate in groups to work on coping skills. 09/21/23 11:22 09/21/23 11:45
[2023-09-21 13:58] LABS: Basophils # (A) 0.1 k/uL (0-0.2); Basophils % (A) 1 %; Eosinophils # (A) 0.1 k/uL (0-0.7); Eosinophils % (A) 1 %; HGB 14.5 gm/dL (13.0-17.5); Lymphocytes # (A) 2.4 k/uL (1.0-4.8); Lymphocytes % (A) 26 %; MCH 28.8 pg (25.0-35.0); MCV 87.4 fL (80.0-100.0); Mean Platelet Volume 7.9; Monocytes # (A) 0.5 k/uL (0-1.0); Monocytes % (A) 5 %; Neutrophils # (A) 6.2 k/uL (1.3-7.7); Neutrophils % (A) 67 %; Platelet Count 339 k/uL (150-450); RBC 5.03 m/uL (4.30-5.90); RDW 13.7 % (11.5-15.5); WBC 9.2 k/uL (3.8-10.6)
[2023-09-21 14:24] LABS: ALT 20 U/L (4-49); AST 27 U/L (17-59); African American GFR (CKD) >90 (>60 ml/min/1.73 sqM); Albumin 5.1 g/dL (3.5-5.0); Alkaline Phosphatase 113 U/L (38-126); Anion Gap 11 mmol/L; Bilirubin, Delta 0.5 mg/dL (0.0-0.2); Bilirubin,Unconjugated 1.2 mg/dL (0.0-1.1); Blood Urea Nitrogen 11 mg/dL (9-20); Carbon Dioxide 24 mmol/L (22-30); Chloride 108 mmol/L (98-107); Glucose 87 mg/dL (74-99); Non-African American GFR(CKD) >90 (>60 ml/min/1.73 sqM); Sodium 143 mmol/L (137-145); Total Bilirubin 1.7 mg/dL (0.2-1.3); Total Protein 7.9 g/dL (6.3-8.2)
[2023-09-21 21:20] LABS: Chol/HDL Ratio 4.38 Ratio; LDL Cholesterol,Calculated 104.9 mg/dL (0.0-131.0)
[2023-09-21] MEDS: QUEtiapine 25 MG TAB PO SCH (21:51)
--- NOTE | 2023-09-22 11:47 | P.PN ---
Progress Note - Text Progress Note Date: 09/22/23 Interval History: Patient was seen in group, and was directable and agreeable to speak with personal lines underwriter in the office. Patient states that he has some concerns about the side effects of the Seroquel, so he did not want to take it until he spoke with this personal lines underwriter. Hoop Riveting Machine Operator went over more common side effects with the patient, and the patient was agreeable to take it. Patient does claim to have slept ok last night however needed ativan to sleep and he is eating well. Patient is attending groups, and interacting appropriately with peers on the unit. At this time patient denies any suicidal or homicidal ideations, intent or plan. Patient denies any auditory, visual hallucinations and denies any paranoia or delusions. Patient denies any side effects from the medications and has been compliant with meds. MENTAL STATUS EXAM: General Appearance: Patient appears to be stated age is alert, directable, and attempts to cooperate. Patient appears to have adequate hygiene and grooming. Dressed in his own clothes, long hair, braided. Wearing glasses. Has a marcelo. Behavior: Patient is seated without any agitated behavior. Proper eye contact Speech: Patient's speech is fluent and nonpressured. Mood/Affect: Patient reports their mood is mildly improving, affect is congruent and constricted. Suicidality/Homicidality: Patient denies having any homicidal ideation intent or plan. Denies any suicidal ideations intent or plan Perceptions: Patient denies any visual hallucinations and denies any auditory hallucinations Though content/process: There is no evidence of any delusional thought content and thought process is linear and goal-directed. focused on possible side effects of medications Memory and concentration: AOX3, grossly intact for the purposes of this session. Judgment and insight: fair IMPRESSIONS: bipolar disorder, current episode, depressed Nicotine dependance Cannabis use disorder PLAN: -Patient is admitted under voluntary status to MHU for stabilization of psychiatric symptoms and safety. -Medications : change and increase Zoloft 50mg qhs for depression/anxiety, Seroq uel 25mg qhs for mood stabilization/sleep plan to increase as tolerated. -Hoop Riveting Machine Operator reviewed EKG. Findings were Normal EKG -Ativan and Haldol PRN for agitation/aggression -NRT -nicotine patch -SW on board for discharge planning. Encourage patient to participate in groups to work on coping skills. Likely discharge back home wednesday if patient continues to improve.
[2023-09-22] MEDS: SERTRALINE 50 MG TAB PO SCH (20:36)
[2023-09-23 06:44] VITALS: RESP 16
[2023-09-23] MEDS ORDERED: hydrOXYzine pamoate 25 MG CAP PO PRN (11:06)
--- NOTE | 2023-09-23 11:16 | P.PN ---
Progress Note - Text Progress Note Date: 09/23/23 nterval History: Patient was seen in group, and was directable and agreeable to speak with advertising writer in the office. Patient states he was feeling a little drowsy this morning when he woke up, but after breakfast, he felt better. He states that his depression is improving, and his anxiety is almost completely gone at this moment, however, during the day, he does get some anxiety. Patient states he slept well last night, and his appetite is good. Patient is attending groups, and interacting appropriately with peers on the unit. At this time patient denies any suicidal or homicidal ideations, intent or plan. Patient denies any auditory, visual hallucinations and denies any paranoia or delusions. Patient denies any side effects from the medications and has been compliant with meds. MENTAL STATUS EXAM: General Appearance: Patient appears to be stated age is alert, directable, and attempts to cooperate. Patient appears to have adequate hygiene and grooming. Dressed in his own clothes, long hair, braided. Wearing glasses. Has a marcelo. Behavior: Patient is seated without any agitated behavior. Proper eye contact Speech: Patient's speech is fluent and nonpressured. Mood/Affect: Patient reports their mood is mildly improving, affect is congruent and constricted. Suicidality/Homicidality: Patient denies having any homicidal ideation intent or plan. Denies any suicidal ideations intent or plan Perceptions: Patient denies any visual hallucinations and denies any auditory hallucinations Though content/process: There is no evidence of any delusional thought content and thought process is linear and goal-directed. Memory and concentration: AOX3, grossly intact for the purposes of this session Judgment and insight: fair IMPRESSIONS: bipolar disorder, current episode, depressed Nicotine dependance Cannabis use disorder PLAN: -Patient is admitted under voluntary status to MHU for stabilization of psychiatric symptoms and safety. -Medications : Zoloft 50mg qhs for depression/anxiety, Seroquel 25mg qhs for mood stabilization/sleep add visteral prn for anxiety -Ativan and Haldol PRN for agitation/aggression -NRT -nicotine patch -SW on board for discharge planning. Encourage patient to participate in groups to work on coping skills. Likely discharge back home tomorrow if patient continues to improve.
[2023-09-24 06:30] VITALS: BP 106/54; PULSE 54; TEMP 97.3
--- NOTE | 2023-09-24 09:59 | P.DS ---
Providers Date of admission: 09/20/23 16:04 Expected date of discharge: 09/24/23 Attending physician: Keshawn Vásquez MD Consults: 09/20/23 16:12 Consult Physician Routine Consulting Provider: Laure Bradford Consult Reason/Comments: History and physical, medical managment Do you want consulting provider notified?: Yes Primary care physician: Stated None - Discharge Diagnosis(es) (1) Bipolar disorder current episode depressed Current Visit: Yes Status: Acute Priority: High (2) Nicotine dependence Current Visit: Yes Status: Acute Priority: Low (3) Cannabis use disorder Current Visit: Yes Status: Acute Priority: Medium Hospital Course: Admission HPI: Admission note was completed by investment underwriter "Patient presented to the hospital on 09/19. As per EPS note, "Pt brought in by EMS from [facility] due to suicidal and homicidal thoughts. pt alert and oriented x4. Pt reports that he got into an argument with his grandma on Wednesday and it made the whole weekend bad. States he was crying, angry, sad, and anxious. Pt states "I get angry that i cant kill myself and it makes me want to take my frustration out on other people." Pt reports he is currently suicidal but denies a plan. pt reports HI towards no one specific and its only when hes frustrated. Pt denies Auditory or visual hallucinations. no delusions present. pt has a history of a suicide attempt by using a noose. Pt denies any medical conditions, denies any current medications." Upon todays interview, he stated he got into an argument with his grandmother, about his duties around the house. He states he was stressed from work, and this just added to his depression. He states that his father passed a few years ago, and that his mom recently went to penitentiary. He states that his depression is increasingly getting worse, and having passive suicidal thoughts, like he should not have ever been born. Patient admits to manic episodes occasionally, but more depression and anxiety. He states his sleep is usually "off", and his appetite is up and down. Patient denies any suicidal or homicidal ideations intent or plan however he did state that he has passive suicidal thoughts of "not living anymore" however does not have a plan. At this time patient denies any auditory or visual hallucinations. Patient denies any flight of ideas racing thoughts and increased in goal directed behavior. Patient admits to using marijuana, nicotine, and very rarely alcohol. " Hospital course: Upon admission to the unit patient was directable and agreeable to commence treatment and signed adult voluntary form. Patient got along well with other patients on the unit and followed unit protocol. Patient was compliant with the medications and denied any side effects throughout hospital course. Patient was started on Zoloft 50 mg nightly for mood/anxiety, Seroquel 25 mg nightly for mood stabilization/sleep. Vistaril as needed for anxiety. Patient spoke of his stressors and engaged in therapy both group and individual. Patient was also seen by medical team for history and physical exam. Throughout the course of the hospitalization patient gradually improved with regards to mood, anxiety, sleep and became more future oriented with improved insight and judgment. On the day of discharge patient denied any suicidal or homicidal ideations intent or plan denied any auditory or visual hallucinations. Patient endorsed wanting to live for his health and family. The patient denied any access to guns or weapons. Patient denied any paranoia and did not endorse any delusions. Patient does have a significant history of substance abuse and was counseled on abstaining from all substances including alcohol and marijuana. Patient elected to do outpatient substance use treatment program through [facility]. Patient was also counseled on the medications and need for regular compliance and was encouraged to follow-up with their outpatient appointment for mental health and also for primary care. Prior to discharge a family meeting will be arranged by high school social studies teacher to answer any questions and ensure safety upon discharge. Patient will be discharged back to his grandmother's house today. Mental status exam: General Appearance: Patient appears to be stated age is alert, pleasant, and cooperative. Patient is in no acute distress and has improved hygiene and grooming Behavior: Patient is calmly seated without any agitated behavior. Speech: Patient's speech is fluent and nonpressured. Mood/Affect: Patient reports their mood is "better", affect is congruent and euthymic. Suicidality/Homicidality: Patient denies having any suicidal or homicidal ideation intent or plan. Perceptions: Patient denies any auditory or visual hallucinations. Though content/process: There is no evidence of any delusional thought content and thought process is linear and goal-directed. More future oriented Memory and concentration: AOX3, grossly intact for the purposes of this session. Can spell "WORLD" backwards correctly. Judgment and insight: improved with guarded prognosis Impression: bipolar disorder, current episode, depressed Nicotine dependance Cannabis use disorder Plan: -Continue with discharge today as patient has improved and stabilized psychiatrically and is not currently an imminent threat to himself and/or others. Patient will remain at chronically elevated risk for harm to self and/or others due to his impulsivity. -Continue medications: Zoloft 50 mg nightly for mood/anxiety, Seroquel 25 mg nightly for mood stabilization/sleep, Vistaril as needed daily for anxiety. -Patient was counseled on the need for medication compliance and appropriate follow-up at mental health and also primary care for medical issues. Patient verbalized understanding and agreed. -Social work to arrange for and conduct family meeting to ensure safety upon discharge and answer any questions/concerns. Social work also to arrange for patients follow up appointments with [facility] for psychiatric care along with follow up with primary care provider. -Patient counseled on abstaining from recreational drugs and marijuana and alcohol. Was informed/educated on the adverse effects on their physical and mental health. Patient verbally agreed and understood. -Patient was instructed to return to the hospital or seek immediate medical care if their psychiatric or medical symptoms do worsen or reoccur. Allergies Allergy/AdvReac Type Severity Reaction Status Date / Time No Known Allergies Allergy Verified 09/20/23 15:48 Laboratory Results WBC 9.2 k/uL (3.8-10.6) 09/21/23 13:10 RBC 5.03 m/uL (4.30-5.90) 09/21/23 13:10 Hgb 14.5 gm/dL (13.0-17.5) 09/21/23 13:10 Hct 44.0 % (39.0-53.0) 09/21/23 13:10 MCV 87.4 fL (80.0-100.0) 09/21/23 13:10 MCH 28.8 pg (25.0-35.0) 09/21/23 13:10 MCHC 33.0 g/dL (31.0-37.0) 09/21/23 13:10 RDW 13.7 % (11.5-15.5) 09/21/23 13:10 Plt Count 339 k/uL (150-450) 09/21/23 13:10 MPV 7.9 09/21/23 13:10 Neutrophils % 67 % 09/21/23 13:10 Lymphocytes % 26 % 09/21/23 13:10 Monocytes % 5 % 09/21/23 13:10 Eosinophils % 1 % 09/21/23 13:10 Basophils % 1 % 09/21/23 13:10 Neutrophils # 6.2 k/uL (1.3-7.7) 09/21/23 13:10 Lymphocytes # 2.4 k/uL (1.0-4.8) 09/21/23 13:10 Monocytes # 0.5 k/uL (0-1.0) 09/21/23 13:10 Eosinophils # 0.1 k/uL (0-0.7) 09/21/23 13:10 Basophils # 0.1 k/uL (0-0.2) 09/21/23 13:10 Sodium 143 mmol/L (137-145) 09/21/23 13:10 Potassium 4.0 mmol/L (3.5-5.1) 09/21/23 13:10 Chloride 108 mmol/L (98-107) H 09/21/23 13:10 Carbon Dioxide 24 mmol/L (22-30) 09/21/23 13:10 Anion Gap 11 mmol/L 09/21/23 13:10 BUN 11 mg/dL (9-20) 09/21/23 13:10 Creatinine 0.72 mg/dL (0.66-1.25) 09/21/23 13:10 Est GFR (CKD-EPI)AfAm >90 (>60 ml/min/1.73 sqM) 09/21/23 13:10 Est GFR (CKD-EPI)NonAf >90 (>60 ml/min/1.73 sqM) 09/21/23 13:10 Glucose 87 mg/dL (74-99) 09/21/23 13:[address] Glu mg/dL 114 mg/dL 09/21/23 13:10 Hemoglobin A1c 5.6 % (<=6.0) 09/21/23 13:10 Calcium 10.0 mg/dL (8.4-10.2) 09/21/23 13:10 Total Bilirubin 1.7 mg/dL (0.2-1.3) H 09/21/23 13:10 Conjugated Bilirubin 0.0 mg/dL (0.0-0.3) 09/21/23 13:10 Unconjugated Bilirubin 1.2 mg/dL (0.0-1.1) H 09/21/23 13:10 Delta Bilirubin 0.5 mg/dL (0.0-0.2) H 09/21/23 13:10 AST 27 U/L (17-59) 09/21/23 13:10 ALT 20 U/L (4-49) 09/21/23 13:10 Alkaline Phosphatase 113 U/L (38-126) 09/21/23 13:10 Total Protein 7.9 g/dL (6.3-8.2) 09/21/23 13:10 Albumin 5.1 g/dL (3.5-5.0) H 09/21/23 13:10 Triglycerides 66.00 mg/dL (0.00-149.00) 09/21/23 13:10 Cholesterol 153.00 mg/dL (0.00-200.00) 09/21/23 13:10 LDL Cholesterol, Calc 104.9 mg/dL (0.0-131.0) 09/21/23 13:10 VLDL Cholesterol, Calc 13.20 mg/dL (5.00-40.00) 09/21/23 13:10 HDL Cholesterol 34.90 mg/dL (40.00-60.00) L 09/21/23 13:10 Cholesterol/HDL Ratio 4.38 Ratio 09/21/23 13:10 TSH 1.980 mIU/L (0.465-4.680) 09/21/23 13:10 Urine Color Yellow 09/20/23 08:00 Urine Appearance Clear (Clear) 09/20/23 08:00 Urine pH 7.0 (5.0-8.0) 09/20/23 08:00 Ur Specific [place] 1.030 (1.001-1.035) 09/20/23 08:00 Urine Protein Trace (Negative) H 09/20/23 08:00 Urine Glucose (UA) Negative (Negative) 09/20/23 08:00 Urine Ketones 1+ (Negative) H 09/20/23 08:00 Urine Blood Negative (Negative) 09/20/23 08:00 Urine Nitrite Negative (Negative) 09/20/23 08:00 Urine Bilirubin Negative (Negative) 09/20/23 08:00 Urine Urobilinogen <2.0 mg/dL (<2.0) 09/20/23 08:00 Ur Leukocyte Esterase Negative (Negative) 09/20/23 08:00 Urine Opiates Screen Not Detected (NotDetected) 09/20/23 11:33 Ur Oxycodone Screen Not Detected (NotDetected) 09/20/23 11:33 Urine Methadone Screen Not Detected (NotDetected) 09/20/23 11:33 Ur Barbiturates Screen Not Detected (NotDetected) 09/20/23 11:33 U Tricyclic Antidepress Not Detected (NotDetected) 09/20/23 11:33 Ur Phencyclidine Scrn Not Detected (NotDetected) 09/20/23 11:33 Ur Amphetamines Screen Not Detected (NotDetected) 09/20/23 11:33 U Methamphetamines Scrn Not Detected (NotDetected) 09/20/23 11:33 U Benzodiazepines Scrn Not Detected (NotDetected) 09/20/23 11:33 Urine Cocaine Screen Not Detected (NotDetected) 09/20/23 11:33 U Marijuana (THC) Screen Detected (NotDetected) H 09/20/23 11:33 SARS-CoV-2 (PCR) Not Detected (Not Detectd) 09/20/23 13:47 Vital Signs Temp 97.3 F L 09/24/23 06:29 Pulse 54 L 09/24/23 06:29 Resp 16 09/24/23 06:29 BP 106/54 09/24/23 06:29 Pulse Ox 99 09/23/23 06:43 FiO2 Health Concerns: CARDIOLOGY:Pt to f/u out pt r/t systolic murmur noted on medical H & P. Echo ordered and recommended. EKG done in hospital setting. Patient Condition at Discharge: Fair Plan - Discharge Summary Discharge Rx Participant: Yes New Discharge Prescriptions: New hydrOXYzine pamoate [Vistaril] 50 mg PO DAILY PRN 30 Days #60 cap PRN Reason: Anxiety Nicotine 14Mg/24Hr Patch [Habitrol] 1 patch TRANSDERM DAILY 14 Days #14 patch QUEtiapine [SEROquel] 25 mg PO HS 30 Days #30 tab Sertraline [Zoloft] 50 mg PO HS 30 Days #30 tab Discharge Medication List Nicotine 14Mg/24Hr Patch [Habitrol] 1 patch TRANSDERM DAILY 14 Days #14 patch 09/24/23 [Rx] QUEtiapine [SEROquel] 25 mg PO HS 30 Days #30 tab 09/24/23 [Rx] Sertraline [Zoloft] 50 mg PO HS 30 Days #30 tab 09/24/23 [Rx] hydrOXYzine pamoate [Vistaril] 50 mg PO DAILY PRN 30 Days #60 cap 09/24/23 [Rx] Follow up Appointment(s)/Referral(s): [facility] [place] [Outside] - 09/27/23 3:00 pm (09/26 at 3pm with Ela Ugarte 09/[address] Oakes) Beto Coats MD [STAFF PHYSICIAN] - 1 Week (Follow up with nurse practitioner adult r/t systolic murmur noted on medical H & P. Echo recommended ) Activity/Diet/Wound Care/Special Instructions: Avoid the use of street drugs and alcohol. Take all medications as prescribed. When you are in need of refills on your medications, please contact your medical provider and/or outpatient psychiatrist/provider to have this done. Please go to your scheduled outpatient appointment for aftercare treatment. If symptoms return or become worse, call the crisis line at and/or go to the nearest emergency room for evaluation. National Suicide Hotline 988 Discharge Disposition: HOME SELF-CARE
== END 2023-09-24 12:18 | disposition home or self-care (01) | DRG 753 ==
LOC: EC 10:47 → 3MHU 16:04
PROVIDERS: ADMIT Psychiatry & Neurology Psychiatry; ATTEND Psychiatry & Neurology Psychiatry
DX: F31.30 Bipolar disorder, current episode depressed, mild or moderate severity, unspecified (principal); F12.10 Cannabis abuse, uncomplicated; F17.200 Nicotine dependence, unspecified, uncomplicated; T43.221D Poisoning by selective serotonin reuptake inhibitors, accidental (unintentional), subsequent encounter; R45.850 Homicidal ideations; Z79.899 Other long term (current) drug therapy; Z91.51 Personal history of suicidal behavior; Z71.51 Drug abuse counseling and surveillance of drug abuser; Z71.89 Other specified counseling; Z28.21 Immunization not carried out because of patient refusal
CPT/HCPCS: 80053; 80061; 80306; 81003; 82075; 82248; 83036; 84443; 85025; 87635; 93005; 99285